=== PATIENT | female | born 1980 | race Caucasian/White ===

== ENCOUNTER 2018-04-13 20:03 | Emergency (ER) | payer OTHER ==
[~2018-04-13] VITALS: Ht 165.1 cm; Wt 56.7 kg
[2018-04-13 20:03] VITALS: BP 115/67
== END 2018-04-13 21:11 | disposition home or self-care (01) ==
LOC: ER 20:08
DX: S61.255A Open bite of left ring finger without damage to nail, initial encounter (principal); Z60.2 Problems related to living alone; W54.0XXA Bitten by dog, initial encounter; Y93.89 Activity, other specified; Y92.89 Other specified places as the place of occurrence of the external cause; Y99.8 Other external cause status
CPT/HCPCS: 99283; A4606; A6402; A6403; Z7610

== ENCOUNTER 2018-04-15 12:04 | Emergency (ER) | payer OTHER ==
[~2018-04-15] VITALS: Ht 165.1 cm; Wt 49.9 kg
[2018-04-15 12:08] VITALS: BP 96/63
[2018-04-15] MEDS ORDERED: IBUPROFEN 600 MG TABLET PO ONE ×2 (12:19→12:30)
== END 2018-04-15 13:00 | disposition home or self-care (01) ==
LOC: ER 12:05
DX: S61.215A Laceration without foreign body of left ring finger without damage to nail, initial encounter (principal); Z60.2 Problems related to living alone; W54.0XXA Bitten by dog, initial encounter; Y93.89 Activity, other specified; Y92.89 Other specified places as the place of occurrence of the external cause; Y99.8 Other external cause status
CPT/HCPCS: 12001; 99283; A4606; A6402 ×2; Z7610